=== PATIENT | female | born 1980 | race Hispanic/Latino ===

== ENCOUNTER 2024-02-01 09:58 | Outpatient (CLI) | payer BC | END 2024-02-01 09:59 | disposition home or self-care (01) | LOC: CSHWCC 09:58 | PROVIDERS: ATTEND Nurse Practitioner Family | DX: L97.222 Non-pressure chronic ulcer of left calf with fat layer exposed (principal); L95.0 Livedoid vasculitis ==

== ENCOUNTER 2024-02-04 10:31 | Outpatient (CLI) | payer BC | END 2024-02-04 10:32 | disposition home or self-care (01) | LOC: CSHWCC 10:31 | PROVIDERS: ATTEND Nurse Practitioner Family | DX: L97.222 Non-pressure chronic ulcer of left calf with fat layer exposed (principal); L95.0 Livedoid vasculitis | CPT/HCPCS: 99215; G0463 ==

== ENCOUNTER 2024-02-15 15:48 | Outpatient (CLI) | payer BC | END 2024-02-15 15:49 | disposition home or self-care (01) | LOC: CSHWCC 15:48 | PROVIDERS: ATTEND Nurse Practitioner Family | DX: L97.222 Non-pressure chronic ulcer of left calf with fat layer exposed (principal); L95.0 Livedoid vasculitis | CPT/HCPCS: 11042; 11045 ==

== ENCOUNTER 2024-02-21 15:43 | Outpatient (CLI) | payer BC | END 2024-02-21 15:44 | disposition home or self-care (01) | LOC: CSHWCC 15:43 | PROVIDERS: ATTEND Family Medicine | DX: L95.0 Livedoid vasculitis (principal); L97.222 Non-pressure chronic ulcer of left calf with fat layer exposed | CPT/HCPCS: 99213; G0463 ==